=== PATIENT | female | born 1990 | race Caucasian/White ===

== ENCOUNTER 2018-02-16 20:14 | Emergency (ER) | payer MEDICAID, OTHER ==
[~2018-02-16] VITALS: Ht 165.1 cm; Wt 57.3 kg
[~2018-02-16 20:14] MED LIST: PROM25TA5 PO
[2018-02-16 20:16] VITALS: BP 136/79; PULSE 70; RESP 18; TEMP 98.6; O2SAT 99
[2018-02-16] MEDS ORDERED: PROPOFOL 200 MG/20 ML AMP IV ONE ×2 (20:30→21:15)
--- NOTE | 2018-02-16 20:38 | PD ---
HPI . Shoulder pain Chief Complaint: Injury Time Seen by Provider: 20:23 Travel History International Travel<30 days: No Contact w/Intl Traveler<30days: No Traveled to known affect area: No History of Present Illness HPI This patient presents for the treatment of a right shoulder dislocation. She states that she was just doing triceps work at the gym when her shoulder popped out. She has had several previous similar injuries and has actually had surgery on her shoulder twice. She states that she is normally treated with IV sedation followed by reduction. Onset was just prior to presentation. Progression is continuous right shoulder pain since that time. Severity is 8/10. Exacerbating factor is movement and relieving factor is being still. Context is numerous previous shoulder dislocations. PFSH Past Medical History Diminished Hearing: No Deep Vein Thrombosis: Yes (LLE) ?: Not LMP: 2 WEEKS Past Surgical History Section: Yes Social History Alcohol Use: Yes () Tobacco Use: Yes (5 CIGARETTES A DAY) Substance Use: No Allergies-Medications (Allergen,Severity, Reaction): Coded Allergies: No Known Allergies (Unverified Adverse Reaction, Unknown, 02/16/18) Reported Meds & Prescriptions Reported Meds & Active Scripts Active Phenergan (Promethazine HCl) 25 Mg Tab 25 Mg PO Q6H PRN Review of Systems Except as stated in HPI: all other systems reviewed are Neg Physical Exam Narrative GENERAL: Patient is awake and alert and in no acute distress. SKIN: warm/dry. Intact. HEAD: Normocephalic. Atraumatic. EYES: Pupils equal and round. No scleral icterus. No injection or drainage. ENT: No nasal bleeding or discharge. Mucous membranes pink and moist. The tip of her uvula is visible. NECK: Trachea midline. Full range of motion without pain. She is able to fully flex and extend her neck. RESPIRATORY: No accessory muscle use. Clear to auscultation. Breath sounds equal bilaterally. MUSCULOSKELETAL: Flattening of the right deltoid. She is guarding her shoulder. She is distally neurovascularly intact. NEUROLOGICAL: Awake and alert. No obvious cranial nerve deficits. Motor grossly within normal limits. Normal speech. PSYCHIATRIC: Appropriate mood and affect; insight and judgment normal. Data Data Last Documented VS Vital Signs Date Time Temp Pulse Resp B/P (MAP) Pulse Ox O2 Delivery O2 Flow Rate FiO2 4/11/18 20:16 98.6 70 18 136/79 (98) 99 Orders Orders Consent (02/16/18 20:23) Propofol 200 Mg/20 Ml Inj (Diprivan 200 (02/16/18 20:30) MDM Medical Decision Making Medical Screen Exam Complete: Yes Emergency Medical Condition: Yes Differential Diagnosis Differential diagnosis of extremity trauma includes but is not limited to fracture, sprain or strain, dislocation, contusion Narrative Course This patient presents with the spontaneous dislocation of her right shoulder. She will be sedated in the shoulder will be reduced. The patient reports that she does not generally have an x-ray following the procedure and she does not require any pain medications at discharge. Procedures Procedure Narrative IV sedation was achieved by Dr. Barron. Timeout was performed. Following adequate sedation, the right shoulder was reduced using traction/countertraction with good results. It was easily reduced. She tolerated procedure well without complication. Diagnosis Primary Impression: Recurrent dislocation, right shoulder Patient Instructions: General Instructions, Shoulder Dislocation (DC) Disposition: 01 DISCHARGE HOME Condition: Stable Klarissa Mccain MD Feb 16, 2018 20:38
[2018-02-16 20:59] VITALS: O2SAT 99
--- NOTE | 2018-02-16 21:08 | PD ---
Physical Exam Date Seen by Provider: Feb 16, 2018 Data Data Last Documented VS Vital Signs Date Time Temp Pulse Resp B/P (MAP) Pulse Ox O2 Delivery O2 Flow Rate FiO2 02/16/18 20:16 98.6 70 18 136/79 (98) 99 Orders Orders Consent (02/16/18 20:23) Propofol 200 Mg/20 Ml Inj (Diprivan 200 (02/16/18 20:30) MDM Medical Record Reviewed: Yes Supervised Visit with YONATAN: No Narrative Course 28-year-old female presents the emergency room with complaints of right shoulder dislocation. I was asked to help with conscious sedation for shoulder reduction. Patient tolerated procedure without any difficultly Procedures Procedure Narrative After the risks and benefits were discussed the following procedure was performed: MODERATE SEDATION: The patient was placed on a secured entrance monitor and pulse oximetry. An ambu bag and suction was immediately available at bedside. The patient was monitored by the nurse. Oxygen saturation , heart rate and blood pressure were monitored. Procedural sedation was acheived using 150mg of propofol . The patient was observed until awake and alert. Procedural Sedation time in attendance was 15 minutes. Diagnosis Primary Impression: Recurrent dislocation, right shoulder Patient Instructions: General Instructions, Shoulder Dislocation (DC) Disposition: 01 DISCHARGE HOME Condition: Stable Noreen Barron DO Feb 16, 2018 21:08
[2018-02-16 21:38] VITALS: BP 125/52; TEMP 98.2
== END 2018-02-16 21:45 | disposition home or self-care (01) ==
LOC: PHED 20:14
DX: M24.411 Recurrent dislocation, right shoulder (principal); F17.210 Nicotine dependence, cigarettes, uncomplicated; Z86.718 Personal history of other venous thrombosis and embolism
CPT/HCPCS: 23650